=== PATIENT | female | born 1970 | race African-American/Black ===

== ENCOUNTER 2020-10-27 11:42 | Inpatient (IN) ==
[2020-10-27] MEDS ORDERED: ONDANSETRON 4 MG/2 ML VIAL IV STA (12:35)
[2020-10-27] MEDS ORDERED: SODIUM CHLORIDE 0.9% 1,000 ML IV STA ×2 (12:35→15:39)
[2020-10-27 13:13] LABS: Basophils % 0.3 % (0.0-0.8); Eosinophils % 0.2 % (0.00-10.9); Hematocrit 45.7 VOL% (35.7-47.0); Hemoglobin 14.8 GM/DL (12.0-16.0); Immature Granulocytes % 0.3 %; Immature Granulocytes Absolute 0.02 #; Lymphocytes # 0.6 10*3/uL (1.4-4.0); Lymphocytes % 8.9 % (21.3-54.2); Mean Corpuscular HGB Conc 32.4 GM/DL (32-36); Mean Corpuscular Volume 91.2 FL (87-102); Mean Platelet Volume 11.4 FL (9.6-12.0); Monocytes % 6.8 % (1.7-12.7); Neutrophils % 83.5 % (38.7-73.9); Platelet Count 217 T/CUMM (130-400); Red Blood Count 5.01 MC/CUMM (3.8-5.5); Red Cell Distribution Width 15.8 % (9.3-17.3); White Blood Count 6.6 T/CUMM (4-12)
[2020-10-27 13:26] LABS: INR 1.1; PT Patient Result 11.8 SECS (9.8-11.9)
[2020-10-27] MEDS ORDERED: DILTIAZEM 50 MG/10 ML VIAL IV STA (13:27)
[2020-10-27 13:40] LABS: Albumin 3.1 G/DL (3.4-5.0); Bilirubin,Total 1.4 MG/DL (0.2-1.0); Calcium 9.4 MG/DL (8.5-10.1); Ferritin 42.4 ng/ml (8-252); Osmolality,Calculated 272.8 MOS/KG (273-304); Total Protein 8.3 G/DL (6.4-8.3)
[2020-10-27] MEDS: dilTIAZem Drip 125 MG/125 ML PREMIX IV SCH (14:14)
[2020-10-27 14:22] LABS: Lymphocytes 10 % (20-55); Platelet Estimate Adequate; Segmented Neutrophils 82 % (50-85); Total Cells Counted 100
[2020-10-27] MEDS ORDERED: ASPIRIN 325 MG TABLET PO STA (15:46)
[2020-10-27] MEDS: METOPROLOL TARTRATE 25 MG TABLET PO SCH ×2 (19:00→20:55)
[2020-10-27] MEDS: ACETAMINOPHEN 325 MG TABLET PO PRN (19:12)
[2020-10-27] MEDS: PANTOPRAZOLE 40 MG TABLET PO SCH (19:12)
[2020-10-27] MEDS: cefTRIAXone 1,000 MG in SYRINGE 1 EACH IV SCH (19:14)
[2020-10-27] MEDS: AZITHROMYCIN INJ 500 MG in SODIUM CHLORIDE 0.9% 250 ML IV SCH (19:24)
[2020-10-27] MEDS: SODIUM CHLORIDE 0.9% 1,000 ML IV SCH (20:50)
[2020-10-27] MEDS ORDERED: ENOXAPARIN 40 MG/0.4 ML SYRINGE SUBCUT SCH (21:00)
[2020-10-28] MEDS: ACETAMINOPHEN 325 MG TABLET PO PRN ×2 (00:23→08:14)
[2020-10-28 00:50] LABS: Bilirubin,Urine Negative (Negative); Blood, Urine Moderate mg/dL (Negative); Glucose,Urine (UA) Negative (Negative); Ketones,Urine 5 mg/dL (Negative); Nitrite,Urine Negative (Negative); Protein,Urine Negative; RBC,Urine 8 /HPF (0-4); Squamous Epithelial Cell,Urine Occasional /HPF (0-10); Urine Appearance CLEAR (Clear); Urine Color Yellow (Yellow); Urine Specific Gravity 1.029 (1.001-1.035); WBC,Urine 1 /HPF (0-6)
[2020-10-28] MEDS: dilTIAZem Drip 125 MG/125 ML PREMIX IV SCH (02:55)
[2020-10-28 06:22] LABS: Albumin 2.8 G/DL (3.4-5.0); Bilirubin,Total 1.6 MG/DL (0.2-1.0); Calcium 9.3 MG/DL (8.5-10.1); Osmolality,Calculated 272.7 MOS/KG (273-304); Risk Ratio 2.82; Total Protein 7.8 G/DL (6.4-8.3); VLDL CHOLESTEROL 11.2 MG/DL
[2020-10-28] MEDS: SODIUM CHLORIDE 0.9% 1,000 ML IV SCH ×3 (06:38→17:15)
[2020-10-28] MEDS ORDERED: AMIODARONE INJ 150 MG in DEXTROSE 5% 100 ML IV ONE ×2 (07:08→09:46)
[2020-10-28] MEDS ORDERED: AMIODARONE INJ 450 MG in DEXTROSE 5% 241 ML IV SCH (07:30)
[2020-10-28] MEDS ORDERED: POTASSIUM CHLORIDE 20 MEQ TABLET PO ONE (07:51)
[2020-10-28] MEDS ORDERED: MAGNESIUM SULF RIDER 2 GM in PREMIX 1 EACH IV ONE (07:52)
[2020-10-28] MEDS ORDERED: ENOXAPARIN 150 MG/ML SYRINGE SUBCUT SCH (08:00)
[2020-10-28] MEDS: PANTOPRAZOLE 40 MG TABLET PO SCH (08:14)
[2020-10-28] MEDS: ASPIRIN 325 MG TABLET PO SCH (08:14)
[2020-10-28] MEDS: METOPROLOL TARTRATE 25 MG TABLET PO SCH ×2 (08:15→21:22)
[2020-10-28] MEDS ORDERED: LIDOCAINE 2% 5 ML VIAL ONE (11:06)
[2020-10-28] MEDS ORDERED: propofoL 200 MG/20 ML VIAL IV ONE (11:06)
[2020-10-28] MEDS ORDERED: ETOMIDATE 40 MG/20 ML VIAL IV ONE (11:06)
[2020-10-28] MEDS ORDERED: GLYCOPYRROLATE 0.4 MG/2 ML VIAL ONE (11:14)
[2020-10-28] MEDS ORDERED: GLYCOPYRROLATE 0.4 MG/2 ML VIAL IV ONE (11:23)
[2020-10-28] MEDS ORDERED: ONDANSETRON 4 MG/2 ML VIAL IV ONE (11:50)
[2020-10-28] MEDS ORDERED: ONDANSETRON 4 MG/2 ML VIAL ONE (12:02)
[2020-10-28] MEDS: ASCORBIC ACID 500 MG TABLET PO SCH ×2 (12:55→21:21)
[2020-10-28] MEDS: AMIODARONE INJ 450 MG in DEXTROSE 5% 241 ML IV SCH ×2 (14:14→22:14)
[2020-10-28] MEDS: ONDANSETRON 4 MG/2 ML VIAL IV PRN (14:37)
[2020-10-28] MEDS: AZITHROMYCIN INJ 500 MG in SODIUM CHLORIDE 0.9% 250 ML IV SCH (17:06)
[2020-10-28] MEDS: cefTRIAXone 1,000 MG in SYRINGE 1 EACH IV SCH (17:10)
[2020-10-28] MEDS ORDERED: APIXABAN 5 MG TABLET PO SCH (21:00)
[2020-10-28] MEDS: APIXABAN 5 MG TABLET PO SCH (21:22)
[2020-10-29] MEDS: SODIUM CHLORIDE 0.9% 1,000 ML IV SCH ×3 (02:20→11:35)
[2020-10-29 05:48] LABS: Basophils % 0.5 % (0.0-0.8); Eosinophils % 0.3 % (0.00-10.9); Hematocrit 37.4 VOL% (35.7-47.0); Immature Granulocytes % 0.3 %; Immature Granulocytes Absolute 0.02 #; Lymphocytes # 1.3 10*3/uL (1.4-4.0); Lymphocytes % 22.2 % (21.3-54.2); Mean Corpuscular HGB Conc 32.1 GM/DL (32-36); Mean Corpuscular Volume 92.6 FL (87-102); Mean Platelet Volume 12.3 FL (9.6-12.0); Monocytes % 14.7 % (1.7-12.7); Platelet Count 216 T/CUMM (130-400); Red Blood Count 4.04 MC/CUMM (3.8-5.5); White Blood Count 5.9 T/CUMM (4-12)
[2020-10-29 06:06] LABS: Albumin 2.4 G/DL (3.4-5.0); Bilirubin,Total 2.4 MG/DL (0.2-1.0); Calcium 9.2 MG/DL (8.5-10.1); Osmolality,Calculated 272.8 MOS/KG (273-304); Total Protein 7.1 G/DL (6.4-8.3)
[2020-10-29] MEDS: ASPIRIN 325 MG TABLET PO SCH (09:01)
[2020-10-29] MEDS: ASCORBIC ACID 500 MG TABLET PO SCH ×2 (09:01→21:53)
[2020-10-29] MEDS: METOPROLOL TARTRATE 25 MG TABLET PO SCH ×2 (09:01→21:53)
[2020-10-29] MEDS: PANTOPRAZOLE 40 MG TABLET PO SCH (09:01)
[2020-10-29] MEDS: AMIODARONE 200 MG TABLET PO SCH (09:02)
[2020-10-29] MEDS: APIXABAN 5 MG TABLET PO SCH ×2 (09:02→21:53)
[2020-10-29] MEDS ORDERED: MAGNESIUM SULF RIDER 2 GM in PREMIX 1 EACH IV PRN (10:56)
[2020-10-29] MEDS ORDERED: MAGNESIUM SULF RIDER 4 GM in PREMIX 1 EACH IV PRN (10:56)
[2020-10-29 15:44] LABS: Bilirubin,Urine Negative (Negative); Blood, Urine Small mg/dL (Negative); Glucose,Urine (UA) Negative (Negative); Hyaline Casts,Urine 14 /LPF (0-3); Ketones,Urine Negative (Negative); Mucus,Urine Occasional /LPF (Occasional); Nitrite,Urine Negative (Negative); Protein,Urine 30 MG/DL; RBC,Urine 9 /HPF (0-4); Squamous Epithelial Cell,Urine Occasional /HPF (0-10); Urine Appearance Slightly Hazy (Clear); Urine Color Amber (Yellow); Urine Specific Gravity 1.024 (1.001-1.035); WBC,Urine 7 /HPF (0-6)
[2020-10-29] MEDS: AZITHROMYCIN INJ 500 MG in SODIUM CHLORIDE 0.9% 250 ML IV SCH (17:01)
[2020-10-29] MEDS: cefTRIAXone 1,000 MG in SYRINGE 1 EACH IV SCH (17:02)
[2020-10-29] MEDS: ONDANSETRON 4 MG/2 ML VIAL IV PRN ×2 (17:07→23:00)
[2020-10-30] MEDS ORDERED: PROMETHAZINE INJ 25 MG in SODIUM CHLORIDE 0.9% 50 ML IV PRN (01:00)
[2020-10-30] MEDS: ONDANSETRON 4 MG/2 ML VIAL IV PRN ×3 (04:57→21:58)
[2020-10-30] MEDS: SODIUM CHLORIDE 0.9% 1,000 ML IV SCH (05:01)
[2020-10-30] MEDS: HYDROmorphone 2 MG/1 ML VIAL IV PRN ×3 (05:38→22:00)
[2020-10-30 07:14] LABS: Calcium 9.5 MG/DL (8.5-10.1); Osmolality,Calculated 276.7 MOS/KG (273-304)
[2020-10-30 07:24] LABS: Albumin 2.7 G/DL (3.4-5.0); Bilirubin,Total 1.1 MG/DL (0.2-1.0); Calcium 9.1 MG/DL (8.5-10.1); Osmolality,Calculated 278.5 MOS/KG (273-304); Total Protein 7.3 G/DL (6.4-8.3)
[2020-10-30 07:59] LABS: Hepatitis B Core IgM Quant 0.21 Index; Hepatitis B Surface Ag Quant < 0.10 Index; Hepatitis B Surface Ag Result Negative (Negative); Hepatitis C Virus Ab Quant 0.07 Index; Hepatitis C Virus Ab Result Negative (Negative)
[2020-10-30] MEDS ORDERED: SODIUM CHLORIDE 0.9% 1,000 ML IV SCH (08:00)
[2020-10-30] MEDS: metroNIDAZOLE INJ 500 MG in PREMIX 1 EACH IV SCH ×2 (12:55→20:00)
[2020-10-30] MEDS: APIXABAN 5 MG TABLET PO SCH (13:15)
[2020-10-30] MEDS: ASPIRIN 325 MG TABLET PO SCH (13:15)
[2020-10-30] MEDS: ASCORBIC ACID 500 MG TABLET PO SCH ×2 (13:15→20:00)
[2020-10-30] MEDS: METOPROLOL TARTRATE 25 MG TABLET PO SCH ×2 (13:27→20:00)
[2020-10-30] MEDS: AMIODARONE 200 MG TABLET PO SCH (13:27)
[2020-10-30] MEDS: PANTOPRAZOLE 40 MG TABLET PO SCH (13:28)
[2020-10-30] MEDS: cefTRIAXone 1,000 MG in SYRINGE 1 EACH IV SCH (17:12)
[2020-10-31 05:13] LABS: Basophils % 0.7 % (0.0-0.8); Eosinophils # 0.1 10*3/uL (0.0-0.87); Eosinophils % 2.7 % (0.00-10.9); Hematocrit 35.4 VOL% (35.7-47.0); Immature Granulocytes % 0.2 %; Immature Granulocytes Absolute 0.01 #; Lymphocytes # 1.1 10*3/uL (1.4-4.0); Lymphocytes % 24.9 % (21.3-54.2); Mean Corpuscular HGB Conc 31.1 GM/DL (32-36); Mean Corpuscular Volume 95.4 FL (87-102); Mean Platelet Volume 11.5 FL (9.6-12.0); Monocytes % 14.9 % (1.7-12.7); Neutrophils % 56.6 % (38.7-73.9); Platelet Count 240 T/CUMM (130-400); Red Blood Count 3.71 MC/CUMM (3.8-5.5); Red Cell Distribution Width 15.8 % (9.3-17.3); White Blood Count 4.4 T/CUMM (4-12)
[2020-10-31 05:41] LABS: Albumin 2.4 G/DL (3.4-5.0); Calcium 8.9 MG/DL (8.5-10.1); Osmolality,Calculated 277.4 MOS/KG (273-304); Total Protein 6.9 G/DL (6.4-8.3)
[2020-10-31] MEDS: metroNIDAZOLE INJ 500 MG in PREMIX 1 EACH IV SCH (06:34)
[2020-10-31] MEDS: ASCORBIC ACID 500 MG TABLET PO SCH ×2 (08:18→21:13)
[2020-10-31] MEDS: METOPROLOL TARTRATE 25 MG TABLET PO SCH ×2 (08:19→21:13)
[2020-10-31] MEDS: AMIODARONE 200 MG TABLET PO SCH (08:19)
[2020-10-31] MEDS: PANTOPRAZOLE 40 MG TABLET PO SCH (08:19)
[2020-10-31] MEDS: cefTRIAXone 1,000 MG in SYRINGE 1 EACH IV SCH (17:04)
[2020-10-31] MEDS: APIXABAN 5 MG TABLET PO SCH (21:13)
[2020-11-01 07:43] LABS: Eosinophils # 0.1 10*3/uL (0.0-0.87); Eosinophils % 3.7 % (0.00-10.9); Hematocrit 36.5 VOL% (35.7-47.0); Hemoglobin 11.5 GM/DL (12.0-16.0); Immature Granulocytes % 0.3 %; Immature Granulocytes Absolute 0.01 #; Lymphocytes # 1.2 10*3/uL (1.4-4.0); Lymphocytes % 31.2 % (21.3-54.2); Mean Corpuscular HGB Conc 31.5 GM/DL (32-36); Mean Corpuscular Volume 93.8 FL (87-102); Mean Platelet Volume 11.7 FL (9.6-12.0); Monocytes % 12.6 % (1.7-12.7); Neutrophils % 51.2 % (38.7-73.9); Platelet Count 283 T/CUMM (130-400); Red Blood Count 3.89 MC/CUMM (3.8-5.5); Red Cell Distribution Width 15.8 % (9.3-17.3); White Blood Count 3.8 T/CUMM (4-12)
[2020-11-01] MEDS: ASCORBIC ACID 500 MG TABLET PO SCH (09:14)
[2020-11-01] MEDS: AMIODARONE 200 MG TABLET PO SCH (09:14)
[2020-11-01] MEDS: PANTOPRAZOLE 40 MG TABLET PO SCH (09:14)
[2020-11-01] MEDS: METOPROLOL TARTRATE 25 MG TABLET PO SCH (09:14)
[2020-11-01] MEDS: APIXABAN 5 MG TABLET PO SCH (09:15)
[2020-11-01] MEDS ORDERED: METOPROLOL TARTRATE 25 MG TABLET PO ONE (09:24)
[2020-11-01 09:57] LABS: Calcium 9.1 MG/DL (8.5-10.1); Osmolality,Calculated 280.1 MOS/KG (273-304)
[2020-11-01 13:06] VITALS: BP 161/81
[2020-11-01] MEDS ORDERED: METOPROLOL TARTRATE 50 MG TABLET PO SCH (21:00)
[2020-11-02] MEDS ORDERED: AMIODARONE 200 MG TABLET PO SCH (09:00)
== END 2020-11-01 13:12 | disposition home or self-care (01) | DRG 308 ==
LOC: N.ED 11:42 → N.EDINP 15:37 → SUATTDRO 15:37 → N.TELEN 16:00
PROVIDERS: ADMIT Internal Medicine; ATTEND Internal Medicine